=== PATIENT | male | born 1940 | race Caucasian/White ===

== ENCOUNTER → 2019-08-03 | Outpatient (CLI) | payer OTHER ==
[2016-04-07 19:25] VITALS: BP 146/106
[~2019-08-03] MED LIST: AMOX1TAB58 PO; CARV6.2511 PO; CHOL200074 PO; HYDR-3164 PO; LISI-130 PO; METF500T16 PO; NITR0.4T24 SL; PRAV40TA2 PO
--- NOTE | 2019-08-03 09:20 | KCIC ---
ABDOMEN LTD History: Abnormal liver function tests, elevated bilirubin Comparison: None. Findings: Multiple sonographic images of the abdomen are submitted. Exam is in part limited due to patient's body habitus. There is diffuse coarsening of the hepatic echotexture, no focal hepatic lesion demonstrated. Right lobe of the liver measured 16.6 cm longitudinal. There has been cholecystectomy. Pancreas, abdominal aorta, and inferior vena cava are not well visualized due to bowel gas and patient's body habitus. Visualized proximal abdominal aortic caliber is within normal limits about 2.8 cm. Common bile duct is within normal limits about 0.6 cm. No free fluid is demonstrated. Right kidney measured 12.7 x 4.7 x 5 cm, no hydronephrosis. There is approximate 3.3 x 5.6 cm vascular structure indicated as being to the left of the midline close to the gallbladder fossa, some internal more venous appearing flow demonstrated on color Doppler imaging, per technologist could not be connected to other adjacent vessels. Impression: 1. There has been cholecystectomy, no biliary dilatation. 2. There is hepatic steatosis. 3. There is a vascular structure of uncertain etiology to the left of the midline close to the gallbladder fossa better characterized with CTA. 4. Midline structures are not well visualized. Electronically signed by: Luis Manuel Newman MD (08/03/2019 9:17 AM) [id number]
== END ==
LOC: KCIC US 08:05
PROVIDERS: ATTEND Family Medicine
DX: K76.0 Fatty (change of) liver, not elsewhere classified (principal); Z90.49 Acquired absence of other specified parts of digestive tract
CPT/HCPCS: 76705

== ENCOUNTER → 2019-08-18 | Outpatient (CLI) | payer MEDICARE, OTHER ==
[2016-04-07 19:25] VITALS: BP 146/106
[~2019-08-18] MED LIST changes: +IOHEXOL 350 MG/ML 100 ML VIAL. IV ONE
--- NOTE | 2019-08-18 10:50 | RAD ---
PQRS Compliance Statement: One or more of the following individualized dose reduction techniques were utilized for this examination: 1. Automated exposure control 2. Adjustment of the mA and/or kV according to patient size 3. Use of iterative reconstruction technique CT ANGIOGRAPHY ABDOMEN Clinical Indication: Abnormal ultrasound of abdomen. History of cholecystectomy and esophageal surgery. Comparison: Limited abdominal ultrasound 08/03/2019. TECHNIQUE: Helical CT imaging of the abdomen is performed before and after 90 cc of Omnipaque 300 IV contrast using angiogram protocol. 3-D MIP and volume rendering reconstructions of the abdominal aorta. 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 This accounts for the finding on ultrasound. The apparent color flow on ultrasound was likely artifact. Lung bases are clear. Cardiac size normal. Mild fatty infiltration of the liver. Slightly nodular contour of the liver suggests chronic liver disease. Cholecystectomy. Spleen size normal. The pancreas and adrenal glands, and abdominal aorta caliber are normal. Moderate atherosclerotic calcification. Kidneys enhance symmetrically, no hydronephrosis. The stomach is decompressed. There is no dilated small bowel. The visualized colon demonstrates moderate diverticulosis. There is no abdominal adenopathy. Degenerative spondylosis of the thoracolumbar spine. IMPRESSION: 1. No acute abdominal abnormality. 2. 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 3. Mild fatty infiltration of the liver. 4. Moderate colon diverticulosis. Electronically signed by: Keanu Beebe MD (08/18/2019 10:48 AM) [id number]
== END | disposition home or self-care (01) ==
LOC: CT 10:02
PROVIDERS: ATTEND Family Medicine
DX: K76.0 Fatty (change of) liver, not elsewhere classified (principal); K57.30 Diverticulosis of large intestine without perforation or abscess without bleeding; I70.0 Atherosclerosis of aorta; M47.815 Spondylosis without myelopathy or radiculopathy, thoracolumbar region; Z90.49 Acquired absence of other specified parts of digestive tract
CPT/HCPCS: 74175; Q9967

== ENCOUNTER 2021-06-23 14:29 | Emergency (ER) | payer MEDICARE ==
[~2021-06-23] VITALS: Ht 180.3 cm; Wt 99.0 kg
[~2021-06-23 14:29] MED LIST changes: -IOHEXOL 350 MG/ML 100 ML VIAL. IV ONE
--- NOTE | 2021-06-23 14:32 | PHYS DOC ---
Past Medical History Past Medical History: CHF, Diabetes-Type II, Hypertension Additional Past Medical Histor: congestive heart failure Past Surgical History: Appendectomy, Cholecystectomy Additional Past Surgical Histo: nose surgery R side, esophagus surgery, sholder surgery Smoking Status: Never Smoker Alcohol Use: None Drug Use: None General Adult HPI: HPI: Patient is a 80 year old male who presents via EMS for report of low oxygen level. The patient has been fully vaccinated against COVID-19, including booster that he received in April 2021. He has very mild, dry cough. And he has had some mild malaise, loss of appetite for the past 2 days. He denies chest pain. He denies dyspnea. He reports no sputum production, and his cough is extremely rare. He denies abdominal pain, nausea, vomiting, diarrhea. He is drinking plenty of fluids, he is still eating but not as much as usual. He reportedly had a fever at home, though he is afebrile here, he has not taken any antipyretics. He has no subjective fevers or chills or myalgias. Some family members with whom he lives recently tested positive for COVID-19, and the patient reportedly had a positive home test today. EMS reportedly noted low oxygen saturation the 80s on room air. The patient was placed on 4 L per nasal cannula, not titrated this but rather just placed on this. He is taken off of oxygen shortly after arrival, the patient continues to report that he does not feel badly, he adamantly denies dyspnea, he reports that he does not want to be here, he did not want to come to the hospital. His oxygen saturation has remained stable on room air, even with exertion and roaming around briskly going back and forth to the bathroom and walking around the room. His oxygen saturation is been in the mid 90s here. Review of Systems: Review of Systems: Constitutional: Denies fever or chills. [] Eyes: Denies change in visual acuity. [] HENT: Nasal congestion. Denies sore throat Respiratory: Rare, dry cough. Denies dyspnea. Denies wheezing. Cardiovascular: Denies chest pain or edema. [] GI: Denies abdominal pain, nausea, vomiting, or diarrhea Musculoskeletal: Denies back pain or joint pain. Denies myalgias. Integument: Denies rash. [] Neurologic: Denies headache, focal weakness or sensory changes. Denies dizziness, head injury or syncope. Psychiatric: Denies depression or anxiety. [] Heart Score: C/O Chest Pain: No Risk Factors: Risk Factors: DM, Current or recent (<one month) smoker, HTN, HLP, family history of CAD, obesity. Risk Scores: Score 0 - 3: 2.5% MACE over next 6 weeks - Discharge Home Score 4 - 6: 20.3% MACE over next 6 weeks - Admit for Clinical Observation Score 7 - 10: 72.7% MACE over next 6 weeks - Early Invasive Strategies Allergies: Allergies: Allergies Coded Allergies Type Severity Reaction Last Updated Verified No Known Drug Allergies 08/25/15 No Physical Exam: PE: Constitutional: Well developed, well nourished, no acute distress, non-toxic appearance. [] HENT: Normocephalic, atraumatic, oropharynx is patent and clear, mucous membranes are moist. External ears normal bilaterally. Eyes: PERRL, EOMI, conjunctiva normal, no discharge. [] Neck: Normal range of motion, no tenderness, supple, no stridor. Trachea midline, no JVD, no meningismus Cardiovascular:Heart rate regular rhythm, +2 radial and +2 posterior tibial pulses bilaterally, no peripheral edema, no cyanosis, warm and well-perfused appearing Lungs & Thorax: Bilateral breath sounds clear to auscultation, no tachypnea, no retractions, no stridor, no wheezing, no rales, no rhonchi, lungs are clear to auscultation bilaterally. No evidence of distress. He speaks in full and clear sentences. No tachypnea or dyspnea with ambulation. Abdomen: Abdomen is soft, nondistended, nontender to palpation Skin: Warm, dry, no erythema, no rash. No cyanosis. Back: No tenderness, no CVA tenderness. [] Extremities: No tenderness, no cyanosis, no clubbing, ROM intact, no edema. No calf tenderness. Neurologic: He is awake, alert, oriented x3, no facial asymmetry, speech is clear and fluent, 5 out of 5 motor strength all 4 extremities, ambulatory with a steady and nonantalgic gait, no ataxia. Psychologic: Affect normal, judgement normal, mood normal. He is pleasant and cooperative. EKG: EKG: EKG interpreted at 1451 Rhythm is sinus Rate is 72 bpm Council is left No STEMI Radiology/Procedures: Radiology/Procedures: IMAGING REPORT Signed PATIENT: JACI SAWYER ACCOUNT: [id number] : 1940 LOCATION: ER AGE: 80 SEX: M EXAM STATUS: REG ER ORD. PHYSICIAN: NICOLLE ARREGUIN DO REASON: cough, covid PROCEDURE: PORTABLE CHEST 1V XR CHEST 1V History: Reason: cough, covid / Spl. Instructions: / History: Comparison: None. Findings: Mild scattered ill-defined opacities. No pleural effusion. No pneumothorax. Impression: 1. Mild scattered ill-defined opacities, represent atelectasis or infiltrates including viral pneumonia. Electronically signed by: Jose Rafael Israel DO (06/23/2021 4:08 PM) [facility] DICTATED and SIGNED BY: JOSE RAFAEL ISRAEL DO DATE: 06/23/21 [id number] Course & Med Decision Making: Course & Med Decision Making Pertinent Labs and Imaging studies reviewed. (See chart for details) Patient has been off oxygen for quite some time, since his ED arrival. He continues adamantly to deny any dyspnea. His oxygen saturation has been stable. He manifests no evidence of hypoxia or distress. Mild Covid pneumonitis is noted on chest x-ray. The patient has no pain or discomfort. I have discussed all of the findings, differential diagnosis and plan of care with the patient. I spoke with his granddaughter, Staci Ayoub, and I explained the findings with her. I explained that he had manifest no evidence of hypoxia or distress at this time. He may continue taking his regularly prescribed medications. She reports that he demonstrated some confusion at home earlier which was concerning to them. She also admits that he does frequently become confused, but his confusion seemed worse than usual. He is not altered at this time, he does not seem to be confused at this time. I did explain that some mild passive hypoxia can be expected and accepted in mild Covid cases. Although, he manifests no evidence of hypoxia here. I gave her very strict return precautions, and I also explained these return precautions to the patient. All parties are comfortable with the plan for discharge home. Mala Disclaimer: Mala Disclaimer: This electronic medical record was generated, in whole or in part, using a voice recognition dictation system. Departure Departure Impression: Primary Impression: COVID-19 Disposition: 01 HOME / SELF CARE / HOMELESS Condition: STABLE Referrals: GUY BROWN MD (PCP) Additional Instructions: You have been tested for or diagnosed with COVID-19. It is an infection caused by a new type of coronavirus. COVID-19 will cause cold-like or mild flu symptoms in most. It can cause more severe symptoms like problems breathing in some. There is no treatment for COVID-19. The body will clear the infection over time. Self-care will help to ease discomfort. Steps to Take: Self-Care Rest as needed. Healthy habits may help you feel better. Steps include: Choose healthy foods including fruits and vegetables. Drink water throughout the day. Get plenty of sleep each night. If you smoke, try to quit. It may ease breathing. Avoid alcohol. Keep Others Healthy The virus can spread to others. Droplets are released every time you sneeze or cough. The droplets can get into the mouth, nose, or eyes of people near you and lead to infection. To lower the chances of spreading COVID-19 to others: Stay at home until your doctor has said it is safe to leave. If you tested positive this will mean staying isolated until both of the following are true: At least 7 days have passed since the start of illness. You are free of fever for at least 72 hours without the use of medicine. During this time: - Avoid public areas, events, or transportation. Do not return to work or school until your doctor has said it is safe to do so. - Call ahead if you need to go to a medical center. Let them know you may have COVID-19. It will help them guide you where to go. They may also ask you to wear a facemask when you come to the office. - If you call for emergency medical services, let them know you may have COVID- 19. While at home: - Try to avoid close contact with others. Stay about 6 feet away. - If possible, spend most of your time in a separate room from others. - Use a face mask if you will be in close contact with others such as sharing a room or vehicle. - Have someone wipe down common surfaces in the home. Use household international account executive every day on areas like doorknobs, counters, or sinks. - Cough or sneeze into a tissue. Throw the tissue away right after use. If a tissue is not available, cough or sneeze into your elbow. - Wash your hands often. Wash them after sneezing or coughing. Use soap and water and wash for at least 20 seconds. Alcohol based hand plate cleaner can be used if soap and w ater is not available. - Do not prepare food for others. Avoid sharing personal items like forks, spoons, or toothbrushes. - Avoid close contact with pets while you are sick. There is no evidence of the virus passing to pets. This is a safety step until more is known about this virus. Isolation can be frustrating. Social interaction can help. Keep in touch with friends and family through phone and tech options. You can still interact with others in your home, just keep a safe distance of about 6 feet. Follow-up: Your doctors office will check in with you to see if there are any changes in your health. You may be asked to keep track of symptoms to share with them. They will also let you know when you are clear to be in public again. Problems to Look Out For: Contact your doctor if your recovery is not going as you expect. Get emergency care if you have problems such as: - Trouble breathing - Nonstop chest pain or pressure - Changes in awareness, confusion, or problems waking - Lips or face have bluish color - Worsening of symptoms If you think you have an emergency, call for emergency medical services right away. As taken from [facility] NICOLLE ARREGUIN DO Jun 23, 2021 14:32
[2021-06-23 16:03] VITALS: BP 170/81
--- NOTE | 2021-06-23 16:11 | RAD ---
XR CHEST 1V History: Reason: cough, covid / Spl. Instructions: / History: Comparison: None. Findings: Mild scattered ill-defined opacities. No pleural effusion. No pneumothorax. Impression: 1. Mild scattered ill-defined opacities, represent atelectasis or infiltrates including viral pneumo alexi. Electronically signed by: Jose Rafael Israel DO (06/23/2021 4:08 PM) [facility] [place]
--- NOTE | 2021-06-25 01:09 | EKG ---
[facility] [address] [place] [id number] Test Date: 2021-06-23 Test Time: 14:46:48 Pat Name: JACI SAWYER Department: Room: Gender: M Sampler [employer]: : 1940 Requested By: NICOLLE ARREGUIN Order Number: [id number] Reading MD: Atul Smith Measurements Intervals [place] Rate: 72 P: 177 IA: 202 QRS: -8 QRSD: 78 T: 38 QT: 376 QTc: 418 Interpretive Statements SINUS RHYTHM LEFTWARD AXIS Electronically Signed On 06-28-2021 14:24:30 SCIENTIST ENGINEER by Atul Smith
== END 2021-06-23 17:07 | disposition home or self-care (01) ==
LOC: ER 14:29
DX: U07.1 COVID-19 (principal); I11.0 Hypertensive heart disease with heart failure; I50.9 Heart failure, unspecified; E11.9 Type 2 diabetes mellitus without complications
CPT/HCPCS: 71045; 93005; 99283